=== PATIENT | female | born 1970 | race Caucasian/White ===

== ENCOUNTER → 2017-09-03 | Outpatient (CLI) | payer BC ==
--- NOTE | 2017-09-03 14:22 | XR ---
EXAMINATION TYPE: XR lumbosacral spine min 4V DATE OF EXAM: 09/03/2017 COMPARISON: NONE HISTORY: 46 year-old female chronic increasing low back pain, lumbago TECHNIQUE: 5 views FINDINGS: 5 lumbar type vertebral bodies. Marked hypertrophic facet arthropathy lower lumbar spine. There is gr mariam 1 anterolisthesis at L5-S1. Difficult to clearly evaluate for L5 pars defects due to the degree o f sclerosis at the facet joints on the oblique views. No definite pars defect is seen. There is moder ate to severe degenerative disc interspace narrowing at L5-S1 and moderate at L4-L5 with vacuum pheno stephanie. Mild endplate spondylosis throughout. Vertebral body heights are maintained. IMPRESSION: 1. Hypertrophic facet arthropathy lower lumbar spine with a grade 1 anterolisthesis at L5-S1. No cheri r pars defect is identified though assessment is limited due to prominent sclerosis from the facet ar thropathy. Suspect a degenerative anterolisthesis. 2. Moderate to severe degenerative disc disease at L5-S1 and moderate at L4-L5.
== END | disposition home or self-care (01) ==
LOC: RADXRYALE 13:33
PROVIDERS: ATTEND Physician Assistant Medical
DX: M51.37 Other intervertebral disc degeneration, lumbosacral region (principal); M43.17 Spondylolisthesis, lumbosacral region; M46.96 Unspecified inflammatory spondylopathy, lumbar region
CPT/HCPCS: 72110

== ENCOUNTER → 2018-08-07 | Outpatient (CLI) | payer BC ==
--- NOTE | 2018-08-07 09:39 | MR ---
EXAMINATION TYPE: MR lumbar spine wo con DATE OF EXAM: 08/07/2018 COMPARISON: X-ray 09/03/2017. HISTORY: Low back pain TECHNIQUE: T1 and T2 axial and sagittal images of the lumbar spine are submitted. FINDINGS: There is no abnormal signal seen within the visualized spinal cord or paraspinal soft tissu es. At L1-2 there is no disc herniation or canal stenosis. No foraminal encroachment. At L2-3 there is no disc herniation or canal stenosis. No foraminal encroachment. At L3-4 there is no disc herniation or canal stenosis. No foraminal hypertrophic change of the facets . At L4-5 there is severe degenerative disc disease with central disc bulging. Facet arthropathy but no stenosis. Mild bilateral foraminal encroachment. At L5-S1 there is severe degenerative disc disease with discogenic marrow changes and grade 1 anterol isthesis. Advanced facet arthropathy. Cannot exclude a pars defect bilaterally L5. Moderate to severe bilateral foraminal encroachment. IMPRESSION: 1. Severe degenerative disc disease L4-5 and L5-S1 with 1 anterolisthesis L5 on S1. Multilevel facet arthropathy. Could not exclude a pars defect at L5 bilaterally. Findings result in moderate to severe bilateral foraminal encroachment L5-S1.
== END | disposition home or self-care (01) ==
LOC: RADMRIMAIN 08:42
PROVIDERS: ATTEND Family Medicine
DX: M51.17 Intervertebral disc disorders with radiculopathy, lumbosacral region (principal); M43.17 Spondylolisthesis, lumbosacral region; M46.97 Unspecified inflammatory spondylopathy, lumbosacral region
CPT/HCPCS: 72148

== ENCOUNTER → 2018-09-01 | Outpatient (CLI) | payer BC ==
[2018-08-28 15:41] VITALS: BMI 36.6
[2018-09-01 13:08] VITALS: BP 141/97; PULSE 89; RESP 16; TEMP 97.9
--- NOTE | 2018-09-01 13:26 | P.PAINCN ---
History of Present Illness - Reason for Consult Consult date: 09/01/18 - Chief Complaint Back pain - History of Present Illness Katie is a 47-year-old female who presents today with a chief complaint of low back pain. She reports she's been having this pain for a while but has been getting worse over the past couple months. She reports that her pain is over her lumbar spine radiating into bilateral buttocks. She denies any radicular symptoms beyond that. She denies any numbness or shooting pain into the leg or into the foot. She denies any bowel or bladder incontinence. She reports her pain is worse when standing for prolonged period or walking for prolonged periods. 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 She is medications as needed as prescribed by primary care physicians. She has not had any back surgery or any injections into her lumbar spine before. She has been in physical therapy for short period but reports that it was too expensive and could not afford going anymore. She does try to do regular daily activities at home but limited due to pain. 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 She reports that she had a stroke at age 38 and has little bit of left-sided weakness compared to her right side. She is not on any specific medications for lupus. She does not like to take steroids regularly and does not use them on a regular basis Past Medical History Past Medical History: Asthma, Cancer, CVA/TIA, Diabetes Mellitus, GERD/Reflux, Hypertension, Pneumonia Additional Past Medical History / Comment(s): [id number]-left side weakness, systemic lupus,vomit in sleep and aspirated in Jun 2018,Type 2 diabetes,steroid injection Jul 2018,UTI,basal cell History of Any Multi-Drug Resistant Organisms: None Reported Additional Past Surgical History / Comment(s): wound repair rt arm Past Anesthesia/Blood Transfusion Reactions: No Reported Reaction Smoking Status: Current every day smoker - Past Family History Mother Family Medical History: Cancer Additional Family Medical History / Comment(s): lymphoma Brother(s) Family Medical History: Cancer Additional Family Medical History / Comment(s): testicular Medications and Allergies Home Medications Medication Instructions Recorded Confirmed Type To Bring List Of Meds And Dose 08/28/18 History Allergies Allergy/AdvReac Type Severity Reaction Status Date / Time Sulfa (Sulfonamide Allergy Anaphylaxis Verified 08/28/18 15:31 Antibiotics) Physical Exam Vitals: Vital Signs Temp Pulse Resp BP 09/01/18 12:58 97.9 F 89 16 141/97 General: Awake and alert oriented 3 no distress Respiratory exam: No audible wheezing no accessory muscle usage Cardiovascular exam: regular rate, palpable bilateral pulses, no lower extremity edema Abdominal exam: No distention nontender to palpation Cervical spine: Normal alignment, Spurling's negative, facet loading negative Lumbar spine: Loss of lumbar lordosis, normal alignment, tender to palpation over bilateral paraspinal muscles, facet loading is positive bilaterally. Straight leg raise is negative. Sacroiliac joints: Nontender to palpation, MONI is negative, Gaenselon negative Neuro exam: Normal sensation in bilateral upper extremities, deep tendon reflexes are 2+ bilateral upper extremities. Normal sensation in bilateral lower extremities. Deep tendon reflexes are 2+ in lower extremities. Left arm and left leg her a little bit weaker than the right side. Psych exam: Cooperative, appropriate mood Results Comments: MRI of the lumbar spine has been reviewed and is in the EMR. Patient has significant neural foraminal stenosis at the L5-S1 level has significant facet degeneration. Is also question of a pars defect at the L5-S1 level bilateral. Assessment and Plan Assessment: Lumbar spondylosis without myelopathy Lumbar degenerative disc disease Plan: Had a discussion with the patient regarding her symptoms and MRI findings. She does not have any radicular symptoms so I'm less concerned with radicular symptoms secondary to her neural foraminal stenosis. I believe most of her pain is coming from the lower 2 levels facet joints. This point I discussed with her potentially doing medial branch block and a potential radiofrequency ablation. I discussed with her the risks, benefits, and alternatives to the procedure. I discussed with her that as a potential three-step process. She would like to move forward with the medial branch block without any sedation. Time with Patient: Greater than 30 PQRS Measure Charge Sheet PQRS Narrative: Smoking Status Current every day smoker Blood Pressure 141/97 Pain Intensity [Lower Back] 4 Pain Intensity [None] 4 Scale Used Numeric (1 - 10) Home Medications: Ambulatory Orders To Bring List Of Meds And Dose 08/28/18
== END | disposition home or self-care (01) ==
LOC: PNWHC3 12:46
PROVIDERS: ATTEND Hospitalist
DX: M51.36 Other intervertebral disc degeneration, lumbar region (principal); M47.816 Spondylosis without myelopathy or radiculopathy, lumbar region; F17.200 Nicotine dependence, unspecified, uncomplicated; Z88.2 Allergy status to sulfonamides
CPT/HCPCS: 99211

== ENCOUNTER → 2019-04-06 | Outpatient (CLI) | payer BC ==
--- NOTE | 2019-04-06 16:46 | XR ---
EXAMINATION TYPE: XR thoracic spine complete DATE OF EXAM: 04/06/2019 Comparison: None Clinical History: 48-year-old female [id number] THOR PAIN Findings: 12 rib-bearing thoracic vertebral bodies. All pedicles are visualized. Mild degenerative disc disease and endplate spondylosis throughout. Vertebral body heights are preserved and alignment is maintaine d. Impression: Mild degenerative disc disease and endplate spondylosis. No vertebral compression collapse or malalig nment.
== END | disposition home or self-care (01) ==
LOC: RADXRYALE 13:36
PROVIDERS: ATTEND Physician Assistant Medical
DX: M51.34 Other intervertebral disc degeneration, thoracic region (principal); M47.814 Spondylosis without myelopathy or radiculopathy, thoracic region
CPT/HCPCS: 72072